=== PATIENT | female | born 1990 | race Two or more races ===

== ENCOUNTER 2016-09-22 12:31 | Emergency (ER) | payer OTHER ==
[2016-09-22 12:36] VITALS: BP 123/78; BMI 33.6
[2016-09-22 12:43] VITALS: PULSE 67; TEMP 98.1
--- NOTE | 2016-09-22 12:44 | PDOC ---
History of Present Illness - General Chief Complaint: Vaginal Bleeding Stated Complaint: VAGINAL BLEEDING Time Seen by Provider: 09/22/16 12:35 History Source: Patient Exam Limitations: No Limitations - History of Present Illness Initial Comments: 09/22/16 12:36 This pt is a 26 yo F (A1) with no significant past medical history who presents to the ER with a complaint of vaginal bleeding. She is s/p a D&C two days ago. She noted minimal bleeding s/p the procedure Today, she developed heavy vaginal bleeding She saturated 3 pad between 10 and and 12:30 Vaginal bleeding is associate with lower abdominal cramping, states this is 5/10 , located in the right lower abdomen No clots, no tissue Denies nausea and vomiting Pt states she feels lightheaded Pt denies chest pain PT was just seen by Dr. Suarez (who performed her procedure). US was performed which demonstrated no retained products. Pt was told to go in to the ER for a CBC. ROS: GENERAL/CONSTITUTIONAL: No: fever, chills, weakness, loss of appetite. HEAD, EYES, EARS, NOSE AND THROAT: No: change in vision, ear pain, discharge, sore throat, throat swelling. CARDIOVASCULAR: No: chest pain, lightheadedness, palpitations, syncope RESPIRATORY: No: cough, shortness of breath, wheezing, hemoptysis, stridor. GASTROINTESTINAL: (+) abdominal pain No: nausea, vomiting, diarrhea GENITOURINARY: (+) Vaginal bleeding No: dysuria, hematuria, frequency, urgency, flank pain. MUSCULOSKELETAL: No: back pain, neck pain, joint pain, muscle swelling or pain SKIN: No: lesions, pallor, rash or easy bruising. NEUROLOGIC: No: headache, vertigo, paresthesias, weakness HEMATOLOGIC/LYMPHATIC: No: anemia, easy bleeding, swelling nodes. PHYSICAL EXAM GENERAL: The patient is in no acute distress. EYES: PERRLA, EOMI, sclera anicteric, conjunctiva clear. LUNGS: Breath sounds equal, clear to auscultation bilaterally. No wheezes, and no crackles. HEART:Regular rate and rhythm, normal S1 and S2 without murmur, rub or gallop. ABDOMEN: (+) right lower abdomen tender to palpation, Soft, normoactive bowel sounds. No guarding, no rebound. EXTREMITIES: Normal range of motion, no edema. No clubbing or cyanosis. No erythema, or tenderness. NEUROLOGICAL: Cranial nerves II through XII grossly intact. Normal speech. No focal neurological deficits. MUSCULOSKELETAL: Back non-tender to palpation, no CVA tenderness SKIN: Warm, Dry, normal turgor, no rashes or lesions noted. Past History - Past Medical History Allergies/Adverse Reactions: Allergies Allergy/AdvReac Type Severity Reaction Status Date / Time No Known Allergies Allergy Verified 09/22/16 12:32 Home Medications: Ambulatory Orders NK [No Known Home Medication] 09/22/16 ED Treatment Course - LABORATORY CBC & Chemistry Diagram: 09/22/16 12:44 Medical Decision Making - Medical Decision Making 09/22/16 12:48 Will do CBC Will re assess 09/22/16 13:05 Laboratory Tests 09/22/16 12:44 WBC 10.4 H Hgb 13.6 Hct 42.0 Plt Count 333 Neutrophils % 56.9 Lymphocytes % 33.1 09/22/16 13:[address] Suarez to review CBC Pt can be discharged to home Pt can return for evaluation by laboratory chemical assistant in a few weeks PT asked to return to the ER for any other concerns or complaints *DC/Admit/Observation/Transfer Diagnosis at time of Disposition: Vaginal bleeding - Discharge Dispostion Disposition: HOME Condition at time of disposition: Stable Admit: No - Referrals Referrals: Chandrika Suarez MD [Primary Care Provider] - - Patient Instructions Printed Discharge Instructions: DI for Vaginal Bleeding Additional Instructions: Eduarda Please monitor yourself for persistent heavy bleeding - saturating 2 pads/hour x 2 hours Please contact your laboratory chemical assistant in that case and come to the ER Please keep your follow up as scheduled already Return to the ER for any other concerns or complaints - Post Discharge Activity Work/School Note: Back to Work
[2016-09-22 12:55] LABS: BASOPHIL 0.4 % (0-2.0); EOSINOPHIL 2.4 % (0-4.5); MCH 27.5 pg (25.7-33.7); MCHC 32.4 g/dl (32.0-36.0); MEAN CELL VOLUME 84.8 fl (80-96); MEAN PLT VOLUME 6.4 fl (7.5-11.1); NEUTROPHILS 56.9 % (42.8-82.8); PLATELET COUNT 333 K/MM3 (134-434); RDW 12.2 % (11.6-15.6); WHITE BLOOD COUNT 10.4 K/mm3 (4.0-10.0)
== END 2016-09-22 13:25 | disposition home or self-care (01) ==
LOC: FER 12:31
DX: N93.9 Abnormal uterine and vaginal bleeding, unspecified (principal)
CPT/HCPCS: 36415; 85025; 99282-25

== ENCOUNTER 2017-06-30 22:39 | Emergency (ER) | payer OTHER ==
[2017-06-30 22:47] VITALS: BP 122/70; PULSE 80; TEMP 97.9; BMI 35.4
[2017-06-30] MEDS ORDERED: ALBUTEROL SO4 2.5/IPRATROPIUM 0.5 INH SOL 3 ML VIAL.NEB. NEB ONE ×2 (22:53)
--- NOTE | 2017-06-30 22:59 | PDOC ---
History of Present Illness - General Chief Complaint: Shortness of Breath Stated Complaint: SOB Time Seen by Provider: 06/30/17 22:47 History Source: Patient Exam Limitations: No Limitations - History of Present Illness Initial Comments: 06/30/17 22:56 This is a 26-year-old female who comes in complaining of shortness of breath. Patient said she was moving some furniture it was beltran and her inhaler for asthma is out of medication. Patient otherwise says she is 26 weeks and is concerned because she is short of breath. Patient otherwise denies any cough, congestion, sensation throat is closing, abdominal pain or cramping. PAST MEDICAL HISTORY: no significant history PAST SURGICAL HISTORY: no significant history FAMILY HISTORY: no pertinant history SOCIAL HISTORY: Pt lives with family and is employed. MEDICATIONS: reviewed ALLERGIES: As per nursing notes Review of Systems General: No fevers or chills, no weakness, no weight loss HEENT: No change in vision. No sore throat,. No ear pain CardioVascular: No chest pain or shortness of breath Respiratory: Shortness of breath as per history of present illness Gastrointestinal: no nausea, vomitting, diarrhea or constipation, No rectal bleeding Genitourinary: No dysuria, hematuria, or frequency Musculoskeletal: No joint or muscle pain or swelling Neurologic: No headache, vertigo, dizziness or loss of consciousness Psychiatric: nor depression Skin: No rashes or easy bruising Endocrine: no increased thirst or abnormal weight change Allergic: no skin or latex allergy All other systems reviewed and normal Exam: General: Well-nourished well-developed individual, no acute distress HEENT: Throat: Normal, tonsils normal, no erythema or exudate Neck: Supple, no meningeal signs, no lymphadenopathy Eyes::Pupils equal reactive and round, extraocular motion intact Chest: Nontender to palpation Cardiac: S1-S2 normal, regular rate and rhythm, no murmurs rubs or gallops Respiratory: Lungs clear to auscultation bilateral Extremities: Warm, dry, no cyanosis, clubbing, or edema Skin: No rashes Neuro: Alert and oriented x3, nonfocal exam, grossly intact, normal gait Psych: Normal mood and affect Assessment and plan: This is a 26-year-old female who is 26 weeks and comes in complaining of shortness of breath secondary to having run out of her asthma medication. Patient given DuoNeb here in the emergency room and a prescription for her Ventolin inhaler was sent to her pharmacy. Patient discharged home will follow-up with her primary care doctor Past History - Past Medical History Allergies/Adverse Reactions: Allergies Allergy/AdvReac Type Severity Reaction Status Date / Time No Known Allergies Allergy Verified 09/22/16 12:32 Home Medications: Ambulatory Orders Albuterol Sulfate Inhaler - [Ventolin Hfa Inhaler -] 1 puff IH PRN PRN #1 inhaler 06/30/17 Asthma: Yes COPD: No - Suicide/Smoking/Psychosocial Hx Smoking History: Never smoked Hx Alcohol Use: No Drug/Substance Use Hx: No Substance Use Type: None *Physical Exam - Vital Signs Last Vital Signs Temp Pulse Resp BP Pulse Ox 97.9 F 80 16 122/70 97 06/30/17 22:45 06/30/17 22:45 06/30/17 22:45 06/30/17 22:45 06/30/17 22:45 ED Treatment Course - Medications Given in the ED: ED Medications Discontinued Medications Generic Name Dose Route Start Last Admin Trade Name Freq PRN Reason Stop Dose Admin Albuterol/Ipratropium 1 amp 06/30/17 22:53 06/30/17 22:55 Duoneb - NEB 06/30/17 22:54 1 amp ONCE ONE Administration *DC/Admit/Observation/Transfer Diagnosis at time of Disposition: Asthma Qualifiers: Asthma severity: mild Asthma persistence: intermittent Asthma complication type : unspecified Qualified Code(s): J45.20 - Mild intermittent asthma, uncomplicated - Discharge Dispostion Disposition: HOME Condition at time of disposition: Stable - Prescriptions Prescriptions: Albuterol Sulfate Inhaler - [Ventolin Hfa Inhaler -] 1 puff IH PRN PRN #1 inhaler PRN Reason: Asthma - Referrals - Patient Instructions Additional Instructions: Use your inhaler 2 puffs as often as every 4-6 hours if needed for shortness of breath Return to the emergency department immediately with ANY new, persistent or worsening symptoms. Continue any medications as previously prescribed by your physician. You should follow up with your primary doctor as soon as possible regarding today's emergency department visit. . Please make sure your doctor reviews the results of your emergency evaluation. Thank you for coming to the Emergency Department today for your care. It was a pleasure to see you today. Please note that your evaluation is INCOMPLETE until you follow-up with your doctor. - Post Discharge Activity
== END 2017-06-30 23:09 | disposition home or self-care (01) ==
LOC: FER 22:39
PROC: 3E0F7GC Introduction of Other Therapeutic Substance into Respiratory Tract, Via Natural or Artificial Opening (ICD-10-PCS; principal; 2017-06-30)
DX: O26.892 Other specified pregnancy related conditions, second trimester (principal); Z3A.26 26 weeks gestation of pregnancy; J45.20 Mild intermittent asthma, uncomplicated
CPT/HCPCS: 99281-25